=== PATIENT | female | born 1950 | race Caucasian/White ===

== ENCOUNTER 2019-04-08 20:59 | Emergency (ER) | payer MEDICARE, SELFPAY ==
--- NOTE | ~2019-04-08 | XR_ITS ---
XR chest 2V 04/08/2019 21:57 Indication: Low potassium. Dyspnea. Procedure: 2 view chest Comparison: 08/08/2006 Findings: Heart size is normal. Pacemaker leads in expected position. No focal air space disease, pul monary edema, pleural effusion or suspected pneumothorax. No acute osseous abnormality. There is an a ge-indeterminate mid thoracic wedge compression fracture, new compared with prior x-ray. Impression: 1: No acute cardiopulmonary disease. Reviewed, dictated and finalized at location A. SORTER Impression: 1: No acute cardiopulmonary disease.
--- NOTE | 2019-04-08 21:18 | ECG_ITS ---
Measurements Intervals [place] Rate: 74 P: 31 MS: 196 QRS: -2 QRSD: 85 T: 11 QT: 405 QTc: 451 Interpretive Statements SINUS RHYTHM VENTRICULAR PREMATURE COMPLEX VOLTAGE CRITERIA FOR LVH BORDERLINE ST-T WAVE ABNORMALITY- DIFFUSE LEADS BASELINE ARTIFACT- I, II, AVR BORDERLINE ECG Electronically Signed On 04-09-2019 6:46:03 ESTIMATING ENGINEER by Cabrera Gaines D.O.
[2019-04-08 21:44] VITALS: BP 118/64; PULSE 98; RESP 16; TEMP 36.6; O2SAT 95
[2019-04-08 21:57] LABS: Basophils Percent Auto 0.4 % (0.2-1.2); Eosinophils Absolute Auto 0.2 K/mm3 (0-0.3); Eosinophils Percent Auto 1.6 % (0-4.4); Hematocrit 35.4 % (37.0-47.0); Hemoglobin 11.6 g/dL (12.0-15.0); Immature Granulocyte Absolute 0.02 K/mm3 (0.00-0.031); Immature Granulocyte Percent A 0.2 % (0-0.5); Lymphocytes Absolute Auto 2.29 K/mm3 (0.9-3.2); Lymphocytes Percent Auto 23.5 % (18.3-44.2); Mean Corpuscular HGB Conc 32.8 g/dl (32-36); Mean Corpuscular Hemoglobin 30.2 pg (26-34); Mean Corpuscular Volume 92.2 fl (80-100); Mean Platelet Volume 11.1 fl (7.4-10.4); Monocytes Absolute Auto 0.8 K/mm3 (0.1-0.6); Monocytes Percent Auto 8.3 % (2.6-8.5); Neutrophils Absolute Auto 6.4 K/mm3 (1.3-6.7); Platelet Count Result 303 k/mm3 (150-375); Red Blood Count 3.84 M/mm3 (4.2-5.4); Red Cell Distribution Width 12.6 % (11.5-14.5); White Blood Count 9.8 K/mm3 (4.5-10.0)
[2019-04-08 22:05] LABS: Prothrombin Time 12.5 Seconds (11.1-14.7)
[2019-04-08 22:23] LABS: NT Pro B Type Natriuretic Pept 78 PG/ML (5-100); Troponin I 0.014 ng/mL (0.000-0.034)
[2019-04-08 22:28] LABS: Blood Urea Nitrogen 31 mg/dL (7-17); Calcium 9.5 mg/dL (8.4-10.2); Carbon Dioxide 34 mmol/L (22-30); Chloride 92 mmol/L (98-107); Estimated CRCL calculation 48 ml/min; Estimated Glomerular Filt Rate 55; Glucose 102 mg/dL (65-105); Potassium 2.7 mmol/L (3.4-5.0); Sodium 136 mmol/L (137-145)
--- NOTE | 2019-04-08 22:28 | ED.RECABL ---
HPI - Recheck/Abnormal Lab/Rx General Chief Complaint: Recheck/Abnormal Lab/Rx Stated Complaint: WASH U SENT FOR 2.5 K LEVEL Time Seen by Provider: 04/08/19 22:22 Source: patient and RN notes reviewed Mode of arrival: ambulatory Limitations: no limitations History of Present Illness HPI narrative: Pt is a 68 y/o female who presents to the ED with c/o hypokalemia. She notes that she is currently taking Lasix as well as a low concentration potassium supplement. Pt states that she recently received blood work, and notes that her PCP called her this evening and advised her to go to the ED due to her potassium being 2.5. She currently denies any CP, SOB, nausea, vomiting, diarrhea, ABD pain, cough, or rhinorrhea. Pt denies any symptoms. complaint: abnormal lab Returns today for: called because of abnormal lab/test Description of abnormal result: Potassium of 2.5. Symptoms since prior visit: no new symptoms Context: called for abnormal lab result Associated symptoms: none Related Data Home Medications Medication Instructions Recorded Confirmed budesonide-formoterol [Symbicort] INHALATION 04/08/19 esomeprazole magnesium mg 04/08/19 furosemide 04/08/19 ibandronate mg PO 04/08/19 metolazone 04/08/19 montelukast mg 04/08/19 potassium chloride meq PO 04/08/19 pravastatin 04/08/19 sertraline mg 04/08/19 tofacitinib [Xeljanz XR] mg PO 04/08/19 04/08/19 tramadol mg 04/08/19 Allergies Allergy/AdvReac Type Severity Reaction Status Date / Time cephalexin Allergy Unknown Hives / Verified 04/08/19 21:47 Red Face Review of Systems Review of Systems: All systems reviewed & are unremarkable except as noted in HPI and below ENT: Denies nasal discharge Cardiovascular: Cardiovascular: Denies chest pain Respiratory: Respiratory: Denies cough and Denies dyspnea Gastrointestinal: Gastrointestinal: Denies abdominal pain, Denies diarrhea, Denies nausea and Denies vomiting PMF Past Medical History Medical History Anxiety Arthritis Asthma Depression GERD (gastroesophageal reflux disease) HLD (hyperlipidemia) Kidney stones Osteoporosis Pacemaker Tear of meniscus of knee bilateral knees UTI (urinary tract infection) Surgical History Surgical History Hx of knee surgery bilateral meniscus repair Hx of repair of right rotator cuff Social History Social History Smoking status: Former smoker Gender identity (if verbalized by the patient): Female Exam Const: General: cooperative, healthy appearing, comfortable, no acute distress, well developed, alert and awake; No confusion Orientation/consciousness: oriented to person, oriented to place, oriented to time, patient oriented x3 and No confusion Limitations: no limitations HENMT: Head: normal to inspection, normocephalic and atraumatic Chest: Chest palpation & inspection: normal inspection of the chest Resp: Effort & Inspection: normal respiratory effort, able to speak in complete sentences, no respiratory distress and not tachypneic Auscultation: clear to auscultation bilaterally, no crackles, no rales, no rhonchi and no wheezes Cardio: Rate: regular rate Rhythm: regular rhythm GI: Inspection: normal to inspection GI Palp: No abdominal tenderness, Yes Soft to palpation, No Tenderness to palpation present (GI), No Guarding due to palpation present (GI), No Rigid due to palpation and No Rebound tenderness present Auscultation: normal bowel sounds Skin: General skin exam: normal color, no rashes or lesions noted, elasticity normal and turgor normal Neuro: General: oriented to person, oriented to place, oriented to time, patient oriented x3, tone normal, moves all extremities, Normal light touch and pain sensation, no meningeal signs, no focal motor deficits, CN's II-XI intact bilaterally and No confusion
[2019-04-08 23:00] VITALS: BP 116/62; PULSE 78; RESP 20; O2SAT 97
[2019-04-08] MEDS: POTASSIUM CHLORIDE 20 MEQ PACKET (FOR LIQUID) 40 MEQ PO (23:54)
[2019-04-09 00:15] VITALS: BP 110/68; PULSE 84; RESP 18; O2SAT 98
== END 2019-04-09 01:05 | disposition home or self-care (01) ==
PROVIDERS: Emergency Provider Emergency Medicine
DX: E87.6 Hypokalemia (principal); F41.9 Anxiety disorder, unspecified; M19.90 Unspecified osteoarthritis, unspecified site; J45.909 Unspecified asthma, uncomplicated; F32.9 Major depressive disorder, single episode, unspecified; E78.5 Hyperlipidemia, unspecified; K21.9 Gastro-esophageal reflux disease without esophagitis; M81.0 Age-related osteoporosis without current pathological fracture; Z95.0 Presence of cardiac pacemaker; Z87.440 Personal history of urinary (tract) infections; Z87.891 Personal history of nicotine dependence; I49.3 Ventricular premature depolarization; R94.31 Abnormal electrocardiogram [ECG] [EKG]
CPT/HCPCS: 36415; 71046; 80048; 83880; 84484; 85025; 85610; 85730; 93005; 99284; A9270

== ENCOUNTER 2022-11-01 06:43 | Outpatient (CLI) | payer MEDICARE, SELFPAY ==
--- NOTE | ~2022-11-01 | CT_ITS ---
Non-contrast CT scan of the Abdomen and Pelvis Clinical indication: Left renal stone Technique: 2.5 mm axial scans were obtained through the abdomen and pelvis without intravenous or or al contrast. Dose reduction technique was used on this scan by utilizing automated exposure control a nd iterative reconstruction technique. The dose-length product (DLP) was 217.30 mGy-cm. COMPARISON: 11/20/2018 Findings: Images through the lung bases reveal no abnormalities. There are possible punctate nonobstructing left renal stones. No right renal stone. No definite urete ral stone or hydronephrosis on either side. The liver, spleen, pancreas, gallbladder, and adrenals appear normal. There are atherosclerotic calci fications of the aorta. There is no evidence of bowel obstruction. Images through the pelvis were performed. There is no evidence of ascites or lymphadenopathy. Urinary bladder grossly unremarkable. No definite adnexal mass seen. There are multiple chronic appearing fracture deformities of the bilateral superior and inferior pubi c rami. There are bilateral pars interarticularis defects of L5, with 8 mm anterolisthesis of L5 over S1. There is probable healed fracture deformity of the right iliac bone adjacent to the SI joint. Impression: Suspected punctate nonobstructing left renal stones. Multiple chronic-appearing pelvic fractures, as noted above, involving the right iliac bone and bilat eral superior and inferior pubic rami. Chronic L5 pars interarticularis defects with 8 mm anterolisth esis of L5 over S1. Reviewed, dictated and finalized at [facility]. Impression: Suspected punctate nonobstructing left renal stones. Multiple chronic-appearing pelvic fractures, as noted above, involving the righ t iliac bone and bilateral superior and inferior pubic rami. Chronic L5 pars in terarticularis defects with 8 mm anterolisthesis of L5 over S1.
== END 2022-11-01 06:44 | disposition home or self-care (01) ==
LOC: ANHIMG 06:48
PROVIDERS: PCP Internal Medicine; Visit Provider Nurse Practitioner Adult Health
DX: N20.0 Calculus of kidney (principal)
CPT/HCPCS: 74176

== ENCOUNTER 2023-01-09 17:23 | Emergency (ER) | payer MEDICARE, SELFPAY ==
[2023-01-09] VITALS (14 sets, daily range): BP systolic 114–133; BP diastolic 67–76; PULSE 75–85; RESP 10–20; TEMP 36.4–36.7; O2SAT 94–100
--- NOTE | ~2023-01-09 | XR_ITS ---
EXAM: XR shoulder LT min 2V DATE: 01/09/2023 18:04 HISTORY: Injury REACHED TO GRAB MAIL . COMPARISON: None available. FINDINGS: Decreased mineralization. No fracture. Anterior humeral dislocation. Left chest pacer with intact leads. Multiple mid thoracic compression deformities. IMPRESSION: Anterior left shoulder dislocation. Multilevel vertebral body compression fractures in the midthoracic spine, of uncertain age, correlate with pain/tenderness. Reviewed, dictated and finalized at location [facility]. [facility] IMPRESSION: Anterior left shoulder dislocation. Multilevel vertebral body compression fractures in the midthoracic spine, of un certain age, correlate with pain/tenderness.
--- NOTE | ~2023-01-09 | XR_ITS ---
EXAM: XR shoulder LT min 2V DATE: 01/09/2023 21:44 HISTORY: post reduction . COMPARISON: Same date at 6:01 PM. FINDINGS/IMPRESSION: Successful interval left shoulder reduction. No new acute fracture detected. Lik mann subacromial narrowing which can be seen with rotator cuff pathology. Reviewed, dictated and finalized at location K. AL LABORATORY MANAGER
--- NOTE | 2023-01-09 20:03 | ED.UPPEXIN ---
HPI - Extremity Injury (Upper) General Chief Complaint: Extremity Injury, Upper Stated Complaint: poss left shoulder dislocation Time Seen by Provider: 01/09/23 20:02 Source: patient Limitations: no limitations History of Present Illness HPI narrative: This is a 72 yo female who presents with concern for left shoulder dislocation. She states it has nearly dislocated previously, demonstrating laxity but she is usually able to pop it back into place herself. She denies seeing an orthopedic surgeon for it thus far but has an upcoming apopintment [facility]22 [facility] No trauma today, she was opening up her mailbox when she experienced acute onset pain. This was at approximately 2:30pm. She denies any paresthesias but the pain aches from the shoulder all the way down her arm. Related Data Home Medications Medication Instructions Recorded Confirmed budesonide-formoterol HFA 160 inhalation 04/08/19 mcg-4.5 mcg/actuation aerosol inhaler (Symbicort) esomeprazole magnesium 40 mg mg 04/08/19 capsule,delayed release furosemide 20 mg tablet 04/08/19 ibandronate 150 mg tablet mg PO 04/08/19 metolazone 2.5 mg tablet 04/08/19 montelukast 10 mg tablet mg 04/08/19 potassium chloride 10 mEq meq PO 04/08/19 tablet,extended release pravastatin 20 mg tablet 04/08/19 sertraline 100 mg tablet mg 04/08/19 tofacitinib 11 mg tablet,extended mg PO 04/08/19 04/08/19 release 24 hr (Xeljanz XR) tramadol 50 mg tablet mg 04/08/19 Allergies Allergy/AdvReac Type Severity Reaction Status Date / Time cephalexin Allergy Unknown Hives / Verified 01/09/23 20:47 Red Face PMFSH Past Medical History Medical History (Updated 01/13/23 @ 06:38 by Earline Bermeo MD) Anxiety Arthritis Asthma Depression GERD (gastroesophageal reflux disease) HLD (hyperlipidemia) Kidney stones Osteoarthritis Osteoporosis Pacemaker Rheumatoid arthritis Tear of meniscus of knee bilateral knees Thoracic compression fracture UTI (urinary tract infection) Surgical History Surgical History Hx of knee surgery bilateral meniscus repair Hx of repair of right rotator cuff Social History Social History (Reviewed 04/08/19 @ 22:41 by Asim Cid Smoking status: Former smoker Gender identity (if verbalized by the patient): Female Exam Narrative: GENERAL: Well-appearing, well-nourished, and in no acute distress. HEAD: Normocephalic, atraumatic. EYES: EOMI, no photophobia ENT: Nares clear, no rhinorrhea or epistaxis. Mucous membranes moist. Malampati class i. Able to fit 3 fingers in mouth. Wears partials. NECK: Supple. Trachea midline. CHEST: Speaking in full sentences. No respiratory distress. HEART: Regular rate and rhythm. Normal radial peripheral pulses and good capillary refill.. ABDOMEN: Soft, nondistended EXTREMITIES: Left arm squared off and held in abduction. Able to demonstrate supination of the forearm but otherwise ROM limited secondary to pain. SKIN: Warm, dry, no rash. NEURO: No focal deficits. Alert and oriented x3. Sensation intact across deltoid and througout left arm/forearm/hand. PSYCH: Normal mood and affect. Course Vital Signs Vital signs: Vital Signs Temperature 97.5 F L 01/09/23 17:37 Pulse Rate 75 01/09/23 17:37 Respiratory Rate 18 01/09/23 17:37 Blood Pressure 114/76 01/09/23 17:37 Pulse Oximetry 100 01/09/23 17:37 Oxygen Delivery Room Air 01/09/23 17:37 Temperature 98.1 F 01/09/23 21:06 Pulse Rate 80 01/09/23 23:20 Respiratory Rate 15 01/09/23 23:20 Blood Pressure 125/74 01/09/23 23:20 Pulse Oximetry 95 01/09/23 23:20 Oxygen Delivery Room Air 01/09/23 21:54 Oxygen Flow Rate 2 01/09/23 21:25 Procedures Orthopedic Joint Reduction Joint #1: Orthopedic Joint Reduction Date: 01/09/23 Time Out Performed: Yes Side: left Joint Reduction
[2023-01-09] MEDS: MIDAZOLAM HCL (*CRX) 2 MG/2 ML VIAL IV PUSH (21:33)
[2023-01-09] MEDS: HYDROmorphone HCL INJ (*CRX) 1 MG/ML SYR 0.5 MG IV PUSH (21:33)
[2023-01-09] MEDS: fentaNYL CITRATE INJ (*CRX) 100 MCG/2 ML VIAL IV PUSH (21:35)
--- NOTE | 2023-01-09 21:36 | PC.NURSE ---
2100-50 mcg of fentanyl and 1mg of versed given by Dr Bermeo for moderate sedation 2104-25 mcg fentanyl and 0.5 mg of versed given by Dr Bermeo 2109-25 mcg fentanyl and 0.5mg versed given by Dr Bermeo 2114-0.5 mg of dilauded given by dr Bermeo
[2023-01-09] MEDS: SODIUM CHLORIDE 0.9% IV 1,000 ML 999 ML (21:42)
--- NOTE | 2023-01-09 22:20 | PC.NURSE ---
Patient drove herself to the hospital. Per provider, once patient is comfortable with driving herself home, she can be discharged. Due to the amount of medications patient was given, this RN informed her it would be best if she stays and relaxes in the bed for awhile.
== END 2023-01-09 23:20 | disposition home or self-care (01) ==
PROVIDERS: Emergency Provider Student in an Organized Health Care Education/Training Program
DX: M24.312 Pathological dislocation of left shoulder, not elsewhere classified (principal); M84.48XA Pathological fracture, other site, initial encounter for fracture; J45.909 Unspecified asthma, uncomplicated; E78.5 Hyperlipidemia, unspecified; K21.9 Gastro-esophageal reflux disease without esophagitis; M06.9 Rheumatoid arthritis, unspecified; M19.90 Unspecified osteoarthritis, unspecified site; F41.9 Anxiety disorder, unspecified; Z95.0 Presence of cardiac pacemaker; Z87.442 Personal history of urinary calculi; Z87.440 Personal history of urinary (tract) infections; Z87.891 Personal history of nicotine dependence
CPT/HCPCS: 23650; 73030; 99285; A4565; J1170; J2250; J3010; J7030